=== PATIENT | male | born 1950 | race Caucasian/White ===

== ENCOUNTER → 2021-05-06 | Day surgery (SDC) | payer MEDICARE, BC ==
[2021-04-26 16:12] LABS: BASOPHILS # (AUTO) 0.1 X10'3 (0-0.2); BASOPHILS % (AUTO) 1.1 % (0-1); EOSINOPHILS # (AUTO) 0.3 X10'3 (0-0.9); EOSINOPHILS % (AUTO) 4.4 % (0-6); MEAN CORPUSCULAR HEMOGLOBIN 29.3 PG (27.0-31.0); MEAN CORPUSCULAR VOLUME 88.8 FL (78-98); MEAN PLATELET VOLUME 8.3 FL (7.4-10.4); MONOCYTES # (AUTO) 0.6 X10'3 (0-0.9); MONOCYTES % (AUTO) 7.7 % (2-12); NEUTROPHILS # (AUTO) 4.7 X10'3 (1.8-7.7); NEUTROPHILS % (AUTO) 60.8 % (42-75); PRE OP HEMATOCRIT 47.7 % (42.0-52.0); PRE OP HEMOGLOBIN 15.7 g/dL (14.0-17.9); PRE OP PLATELET COUNT 230 X10'3 (140-440); RED BLOOD COUNT 5.37 X10'6 (4.70-6.10); RED CELL DISTRIBUTION WIDTH 14.9 % (11.5-14.5)
[2021-04-26 16:13] LABS: CLARITY,URINE CLEAR (Clear); COLOR,URINE STRAW (Yellow); GLUCOSE, URINE >=1000 mg/dl (Neg); KETONES,URINE NEGATIVE (Neg); LEUKOCYTE ESTERASE ,URINE NEGATIVE (Neg); NITRITES, URINE NEGATIVE (Neg); OCCULT BLOOD,URINE NEGATIVE (Neg); PROTEIN,URINE NEGATIVE (Neg); UROBILINOGEN,URINE 0.2 E.U/dL (0.2-1.0)
[2021-04-26 16:35] LABS: UA COLLECTION TYPE CLN CATCH MIDSTREAM
[2021-04-26 16:46] LABS: ALBUMIN 3.7 G/DL (3.4-5.0); ALBUMIN/GLOBULIN RATIO 0.8 (1.1-1.5); ALKALINE PHOSPHATASE 65 IU/L (46-116); BLOOD UREA NITROGEN 18 MG/DL (7-18); BUN/CREATININE RATIO 15.9 (5.4-32.0); CALCIUM 9.5 MG/DL (8.5-10.1); CHLORIDE 103 MMOL/L (99-107); CREATININE 1.13 MG/DL (0.60-1.10); PRE OP ALT 26 U/L (30-65); PRE OP ANION GAP 7 (8-16); PRE OP AST 16 U/L (10-37); PRE OP BILIRUB, TOTAL 0.3 MG/DL (0.0-1.0); PRE OP GLUCOSE 144 MG/DL (70-104); PRE OP POTASSIUM 4.5 MMOL/L (3.4-5.1); PRE OP SODIUM 139 MMOL/L (135-145); TOTAL CARBON DIOXIDE 28.6 MMOL/L (24-32); TOTAL PROTEIN 8.1 G/DL (6.4-8.2); eGFR 65 ML/MIN
[2021-04-26 17:43] LABS: SQUAMOUS EPITHELIAL CELL,UR FEW /LPF (FEW); WBC,URINE 0-4 /HPF (0-4)
[2021-04-26 17:44] LABS: BACTERIA,URINE FEW /HPF (Neg); RBC,URINE 0-2 /HPF (0-2)
[2021-04-26 17:46] LABS: MUCUS STRANDS FEW /LPF (Neg)
[~2021-05-06] VITALS: Ht 185.4 cm; Wt 113.9 kg
[~2021-05-06] MED LIST: 0.9 % SODIUM CHLORIDE 10 ML VIAL ONE; ASPI-611 PO; BUPIVAcaine/PF 2.5mg/ml (0.25%) 10ml vial ONE; DOCU-21 PO; DULA4.5P SL; EMPA1TAB7 PO; GABA600T13 PO; GLUC-95 PO; HYDR-3972 PO; HYDROmorphone/PF 0.2 MG/ML SYRINGE IV PRN; INSU100V9 SQ; LIDOcaine 2% (20mg/ml) 5ml vial ONE; LISI40TA13 PO; LORA-641 PO; MAGN400C PO; MELA5TAB12 PO; MULT-1141 PO; NAPR220C62 PO; PIOG15TA67 PO; ROPIVAcaine 0.2% (10 MG/5 ML) BOLUS INJECTION POPLITEAL PRN; ROPIVAcaine 0.2%/PF PUMP/bolus 545 ML POPLITEAL SCH; ROPIVAcaine 0.5% (5mg/ml) 30ml vial ONE; ROSU20TA2 PO; TIZA4CAP PO; acetaminophen 1,000mg/100ml IV 100 ML IV PRN; bacitracin 15gm ointment TP ONE; cefazolin/dext.iso 2gm/100ml IV ONE; dexamethasone sod phosphate 4mg/ml inj. ONE; ePHEDrine 50MG/ML INJ. ONE; famotidine 20mg tablet PO ONE; fentaNYL /PF 50mcg/ml 5ml ampule ONE; fentaNYL/PF 50MCG/1 ML 2ML syringe IV PRN; hydrALAZINE 20mg/ml inj. IV PRN; ketorolac trometh. 30mg/ml inj. IV ONE; labetalol 20mg/4ml (5mg/ml) syringe IV PRN; meperidine/PF 25mg/ml syringe IV PRN; midazolam 1 mg/ML 2ml injection ONE; morphine 2 MG/ML inj. syringe IV PRN; morphine 4 MG/ML inj SYRINge IV PRN; ondansetron/PF 4mg/2ml inj IV PRN; ondansetron/PF 4mg/2ml inj ONE; proCHLORperazine 10 MG/2 ml inj IV PRN; propofol inj 20 ML IV ONE; ringers solution, lacted 1,000 ML IV SCH; rocuronium 10mg/ml inj IV ONE; sevoflurane 250ml liquid IH ONE
[2021-05-06 09:23] VITALS: BP 147/92
[2021-05-06 09:26] VITALS: BP 147/92
[2021-05-06 13:09] VITALS: BP 164/103
[2021-05-06 13:19] VITALS: BP 150/78
[2021-05-06 13:29] VITALS: BP 155/84
[2021-05-06 13:39] VITALS: BP 150/88
--- NOTE | 2021-05-06 13:43 | NUR ---
PT MORE AWAKE VSS NO DISTRESS DENIES PAIN, +CMS TO LEFT FOOT DRESSING INTACT. DC INSTR GIVEN MEETS CRITERIA TO GO HOME RIDE CALLED. Addendum: 05/06/21 at 1345 by Lyndsey Tobin RN Amended: Links added.
== END | disposition home or self-care (01) ==
LOC: PAS 06:38
PROVIDERS: ATTEND Podiatrist Foot & Ankle Surgery
DX: S86.012A Strain of left Achilles tendon, initial encounter (principal); M76.62 Achilles tendinitis, left leg; I10 Essential (primary) hypertension; E11.40 Type 2 diabetes mellitus with diabetic neuropathy, unspecified; E66.9 Obesity, unspecified; Z68.33 Body mass index [BMI] 33.0-33.9, adult; G89.18 Other acute postprocedural pain; Z79.899 Other long term (current) drug therapy; Z79.01 Long term (current) use of anticoagulants; Z79.4 Long term (current) use of insulin; Z79.82 Long term (current) use of aspirin; Z98.890 Other specified postprocedural states; Z72.89 Other problems related to lifestyle; X58.XXXA Exposure to other specified factors, initial encounter; Y93.89 Activity, other specified; Y92.89 Other specified places as the place of occurrence of the external cause; Y99.8 Other external cause status
CPT/HCPCS: 27650; 27691; 36415; 64446; 73650; 76000; 76937; 80053; 81001; 82948; 85025; 93005; A6222; C1713; C1750; J1100; J2001; J2250; J2405; J2704; J3010; J3490; A4215; A4618; A6253; A6449; A7000; J2795; J7120